=== PATIENT | female | born 1945 | race Caucasian/White ===

== ENCOUNTER 2018-04-17 09:09 | Emergency (ER) | payer OTHER ==
[~2018-04-17] VITALS: Ht 152.4 cm; Wt 59.4 kg
[~2018-04-17 09:09] MED LIST: ADVA250A INH; ALBU1AER INH; CLIN1CAP5 PO
[2018-04-17 09:11] VITALS: BP 172/77; PULSE 80; RESP 22; TEMP 98.6; O2SAT 91
[2018-04-17] MEDS ORDERED: PRED10 PO (09:50)
[2018-04-17] MEDS ORDERED: FLUT1INH INH (09:50)
[2018-04-17] MEDS ORDERED: CARV3.12 PO (09:50)
[2018-04-17] MEDS ORDERED: VENTAER INH (09:50)
[2018-04-17] MEDS ORDERED: DOXY100C PO (09:50)
[2018-04-17] MEDS ORDERED: ASPI-516 CHEW (09:50)
[2018-04-17] MEDS ORDERED: UMEC1INH INH (09:50)
[2018-04-17] MEDS ORDERED: ATOR40TA16 PO (09:50)
--- NOTE | 2018-04-17 09:59 | PD ---
HPI Chief Complaint: Respiratory Symptoms Time Seen by Provider: 09:59 Travel History International Travel<30 days: No Contact w/Intl Traveler<30days: No Traveled to known affect area: No History of Present Illness HPI 73-year-old female came to the emergency room with history of shortness of breath and cough since last night. Patient says this morning she was unable to catch her breath and decided to come to the emergency room. She drove herself in. Patient sees medical review specialist Dr. Chapa. She tried calling his office but was unable to get hold of him and hence came to the emergency room. Oxygen saturation was 90-91% on room air. Patient does not have oxygen at home. She is a smoker. She has history of COPD. No history of chest pain. Patient says she is bringing out whitish color sputum. Patient says that she has been feeling chills but did not have any fever. PFSH Past Medical History Narrative Medical List of her past medical, surgical, social and family history is reviewed from the nursing note. Asthma: Yes Anxiety: Yes Heart Rhythm Problems: Yes Cardiovascular Problems: Yes (H/O RHEUMATIC FEVER) High Cholesterol: Yes COPD: Yes Diminished Hearing: No Respiratory: Yes Tetanus Vaccination: < 5 Years Influenza Vaccination: No Menopausal: Yes Past Surgical History Appendectomy: Yes Section: Yes (THREE C-SECTIONS) Thoracic Surgery: Yes (aortic valve replacement 2014) Tonsillectomy: Yes Social History Alcohol Use: Yes (2 DRINKS PER DAY) Tobacco Use: Yes (1 PPD) Substance Use: No Allergies-Medications (Allergen,Severity, Reaction): Coded Allergies: penicillin G (Unverified Allergy, Unknown, UNKNOWN, 04/17/18) codeine (Unverified Adverse Reaction, Severe, N&V, 04/17/18) Comments List of her allergies reviewed from the nursing note. Reported Meds & Prescriptions Reported Meds & Active Scripts Active Reported Atorvastatin (Atorvastatin Calcium) 40 Mg Tab 40 Mg PO HS Aspirin 81 Mg Chew 81 Mg CHEW DAILY Prednisone 10 Mg Tab 10 Mg PO DAILY Doxycycline Hyclate 100 Mg Cap 100 Mg PO BID Carvedilol 3.125 Mg Tab 3.125 Mg PO BID Breo Ellipta Inh (Fluticasone/Vilanterol) 100-25 Mcg/Act Inh 1 Puff INH DAILY Use daily at the same time. Ventolin Hfa 18 GM Inh (Albuterol Sulfate) 90 Mcg/Act Aer 2 Puff INH Q4-6H PRN Incruse Ellipta Inh (Umeclidinium Elwin Inh) 0.0625 Mg/Act Inh 62.5 Mcg INH DAILY Narrative Medication List of her home medications reviewed from the nursing note. Review of Systems Except as stated in HPI: all other systems reviewed are Neg Respiratory: Positive: Cough, Shortness of Breath Physical Exam Narrative GENERAL: Awake, alert, moderate distress, restless SKIN: Focused skin assessment warm/dry. HEAD: Atraumatic. Normocephalic. EYES: Pupils equal and round. No scleral icterus. No injection or drainage. ENT: No nasal bleeding or discharge. Mucous membranes pink and moist. NECK: Trachea midline. No JVD. CARDIOVASCULAR: Regular rate and rhythm. No murmur appreciated. RESPIRATORY: Decreased air entry bilaterally with tachypnea and use of accessory muscles. Bilateral and expiratory wheeze GASTROINTESTINAL: Abdomen soft, non-tender, nondistended. Hepatic and splenic margins not palpable. MUSCULOSKELETAL: No obvious deformities. No clubbing. No cyanosis. No edema. NEUROLOGICAL: Awake and alert. No obvious cranial nerve deficits. Motor grossly within normal limits. Normal speech. PSYCHIATRIC: Appropriate mood and affect; insight and judgment normal. Data Data Last Documented VS Vital Signs Date Time Temp Pulse Resp B/P (MAP) Pulse Ox O2 Delivery O2 Flow Rate FiO2 04/17/18 11:00 89 22 140/72 (94) 97 Nasal Cannula 2.00 04/17/18 09:11 98.6 Orders Orders Complete Blood Count With Diff (04/17/18 10:17) Basic Metabolic Panel (Bmp) (04/17/18 10:17) B-Type Natriuretic Peptide (04/17/18 10:17) Prothrombin Time / Inr (Pt) (04/17/18 10:17) Troponin I (04/17/18 10:17) Iv Access Insert/Monitor (04/17/18 10:17) Electrocardiogram (04/17/18 10:17) Ecg Monitoring (04/17/18 10:17) Oximetry (04/17/18 10:17) Oxygen Administration (04/17/18 10:17) Chest, Single Ap (04/17/18 10:17) Sodium Chloride 0.9% Flush (Ns Flush) (04/17/18 10:30) Methylprednisolone So Succ Inj (Solumedr (04/17/18 10:30) Albuterol-Ipratropium Neb (Duoneb Neb) (04/17/18 10:30) Labs Laboratory Tests Test 04/17/18 10:20 White Blood Count 9.6 TH/MM3 Red Blood Count 5.01 MIL/MM3 Hemoglobin 15.4 GM/DL Hematocrit 45.2 % Mean Corpuscular Volume 90.2 FL Mean Corpuscular Hemoglobin 30.7 PG Mean Corpuscular Hemoglobin Concent 34.0 % Red Cell Distribution Width 13.0 % Platelet Count 265 TH/MM3 Mean Platelet Volume 7.3 FL Neutrophils (%) (Auto) 78.2 % Lymphocytes (%) (Auto) 11.3 % Monocytes (%) (Auto) 4.8 % Eosinophils (%) (Auto) 3.3 % Basophils (%) (Auto) 2.4 % Neutrophils # (Auto) 7.5 TH/MM3 Lymphocytes # (Auto) 1.1 TH/MM3 Monocytes # (Auto) 0.5 TH/MM3 Eosinophils # (Auto) 0.3 TH/MM3 Basophils # (Auto) 0.2 TH/MM3 CBC Comment DIFF FINAL Differential Comment Prothrombin Time 11.0 SEC Prothromb Time International Ratio 1.1 RATIO Blood Urea Nitrogen 9 MG/DL Creatinine 0.58 MG/DL Random Glucose 108 MG/DL Calcium Level 9.0 MG/DL Sodium Level 136 MEQ/L Potassium Level 4.1 MEQ/L Chloride Level 102 MEQ/L Carbon Dioxide Level 25.5 MEQ/L Anion Gap 9 MEQ/L Estimat Glomerular Filtration Rate 102 ML/MIN Troponin I LESS THAN 0.02 NG/ML B-Type Natriuretic Peptide 127 PG/ML MDM Medical Decision Making Medical Screen Exam Complete: Yes Emergency Medical Condition: Yes Medical Record Reviewed: Yes Interpretation(s) Twelve-lead EKG was reviewed by me. Normal sinus rhythm, normal axis, nonspecific ST-T wave changes, PACs. Heart rate of 75 bpm. Differential Diagnosis Acute COPD exacerbation, CHF, pneumonia Narrative Course 11:27 AM blood test results are back and within acceptable limits. Patient was given 3 [id number] DuoNeb's and IV Solu-Medrol. I discussed the case with Dr. Chapa his medical review specialist who requested to be called after the patient was evaluated. Patient will be admitted and he will consult on the patient. Awaiting for the hospitalist to call back. 11:36 AM I was just told by the nurse that patient wants to leave because she has 5 dogs at home and wants to take care of the dogs. I went and spoke with her and made her understand that she was still wheezing and hypoxic and should stay and it would be very risky to leave but she was adamant that she had to go home and take care of the dogs. Patient will leave AGAINST MEDICAL ADVICE. She is in full capacity to make decisions for herself. Procedures EKG Prior to Arrival: No Physician Communication Physician Communication Dr. Chapa Diagnosis Primary Impression: Respiratory distress Additional Impressions: Acute exacerbation of chronic obstructive pulmonary disease (COPD) Hypoxia Disposition: AGAINST MEDICAL ADVICE Condition: Serious Eduar Chen MD April 17, 2018 09:59
[2018-04-17 10:20] VITALS: O2SAT 95
[2018-04-17 10:23] VITALS: O2SAT 93
[2018-04-17] MEDS: RESP: ALBUTEROL 2.5 MG/IPRATROPIUM 0.5 MG NEB (SCH) INH (10:23)
[2018-04-17] MEDS ORDERED: SODIUM CHLORIDE 0.9% FLUSH 10 ML FLUSH IVF PRN (10:30)
[2018-04-17] MEDS ORDERED: methylPREDNISolone SOD SUCC 125 MG/2 ML VIAL IV PUSH ONE (10:30)
[2018-04-17 10:39] LABS: AUTOMATED NEUTROPHIL # 7.5 TH/MM3 (1.8-7.7); BASOPHIL # 0.2 TH/MM3 (0-0.2); BASOPHIL % 2.4 % (0.0-2.0); EOSINOPHIL # 0.3 TH/MM3 (0-0.4); EOSINOPHIL % 3.3 % (0.0-4.0); HEMATOCRIT 45.2 % (35.0-46.0); HEMOGLOBIN 15.4 GM/DL (11.6-15.3); LYMPH % 11.3 % (9.0-44.0); LYMPHOCYTE # 1.1 TH/MM3 (1.0-4.8); MEAN CELL VOLUME 90.2 FL (80.0-100.0); MEAN CORPUSCULAR HEMOGLOBIN 30.7 PG (27.0-34.0); MEAN PLATELET VOLUME 7.3 FL (7.0-11.0); MONO % 4.8 % (0.0-8.0); MONOCYTE # 0.5 TH/MM3 (0-0.9); NEUT % 78.2 % (16.0-70.0); PLATELET COUNT 265 TH/MM3 (150-450); RED BLOOD COUNT 5.01 MIL/MM3 (4.00-5.30); WHITE BLOOD COUNT 9.6 TH/MM3 (4.0-11.0)
[2018-04-17 10:49] LABS: CHLORIDE 102 MEQ/L (98-107); SODIUM (NA) 136 MEQ/L (136-145)
[2018-04-17 10:52] LABS: BICARBONATE 25.5 MEQ/L (21.0-32.0); BLOOD UREA NITROGEN 9 MG/DL (7-18); GLUCOSE,RANDOM 108 MG/DL (74-106)
[2018-04-17 10:54] LABS: INTERNATIONAL NORMALIZED RATIO 1.1 RATIO
[2018-04-17 10:56] LABS: CREATININE 0.58 MG/DL (0.50-1.00); GLOMERULAR FILTRATION RATE 102 ML/MIN (>89)
[2018-04-17 11:00] VITALS: BP 140/72; PULSE 89; RESP 22; O2SAT 97
[2018-04-17 11:00] LABS: TROPONIN I LESS THAN 0.02 NG/ML (0.02-0.05)
--- NOTE | 2018-04-17 11:11 | RADRPT ---
EXAM DATE: 04/17/2018 11:04 AM EDT AGE/SEX: 73 years / Female INDICATIONS: Short of breath CLINICAL DATA: This is the patient's initial encounter. Patient reports that signs and symptoms have been present for 2 days and indicates a pain score of 5/10. MEDICAL/SURGICAL HISTORY: Asthma. Chronic obstructive pulmonary disease. CABG. COMPARISON: [facility], CHEST SINGLE AP, 12/29/2012. . FINDINGS: A single AP view of the chest demonstrates the lungs to be symmetrically aerated without evidence of mass, infiltrate or effusion. The cardiomediastinal contours are unremarkable. Osseous structures a re intact. The patient is status post interval median sternotomy. CONCLUSION: 1. Status post interval median sternotomy. 2. No acute cardiopulmonary disease. Electronically signed by: Dionicio Benito MD 04/17/2018 11:10 AM EDT
--- NOTE | 2018-04-17 13:54 | EKG ---
Date Performed: 04/17/2018 Time Performed: 09:25:39 PTAGE: 73 years EKG: Sinus rhythm WITH OCCASIONAL SUPRAVENTRICULAR PREMATURE COMPLEXES BORDERLINE ECG PREVIOUS TRACING : 05/12/2015 13.03 DOCTOR: Danielito Clinton Interpretating Date/Time 04/17/2018 13:52:23
== END 2018-04-17 11:43 | disposition left against medical advice (07) ==
LOC: PHED 09:09
DX: J44.1 Chronic obstructive pulmonary disease with (acute) exacerbation (principal); F41.9 Anxiety disorder, unspecified; E78.00 Pure hypercholesterolemia, unspecified; F17.200 Nicotine dependence, unspecified, uncomplicated; Z79.82 Long term (current) use of aspirin; Z79.51 Long term (current) use of inhaled steroids; Z79.899 Other long term (current) drug therapy
CPT/HCPCS: 71045; 80048; 83880; 84484; 85025; 85610; 93005; 94640; 94664; 96374; 99285; J2930